=== PATIENT | male | born 1975 | race African-American/Black ===

== ENCOUNTER 2019-09-28 15:14 | Emergency (ER) | payer MEDICAID ==
[~2019-09-28] VITALS: Ht 182.9 cm; Wt 102.1 kg
[2019-09-28 15:27] VITALS: Ht 182.9 cm; Wt 102.1 kg
[2019-09-28 16:46] VITALS: BP 143/71
== END 2019-09-28 16:46 | disposition home or self-care (01) ==
LOC: ED 15:14
DX: J06.9 Acute upper respiratory infection, unspecified (principal)